=== PATIENT | female | born 1955 | race Caucasian/White ===

== ENCOUNTER 2021-03-01 14:45 | Outpatient (CLI) | payer MEDICARE, OTHER, SELFPAY ==
--- NOTE | ~2021-03-01 | MM_ITS ---
EXAMINATION: MM screening venkat BI w hilario HISTORY: Screening mammogram, family history of breast cancer in her mother. TECHNIQUE: Craniocaudal and mediolateral oblique 3-D tomosynthesis images were obtained and synthetic 2-D images were generated. CAD analysis was submitted and interpreted. COMPARISON: 05/21/2017, 12/22/2015, 07/27/2014 BREAST PARENCHYMAL COMPOSITION: There are scattered areas of fibroglandular density. FINDINGS: There is no evidence of suspicious mass, calcification, or architectural distortion to sugg est malignancy in either breast. There has been no suspicious interval change. IMPRESSION: 1. No mammographic evidence of malignancy. 2. Recommend routine screening mammography in one year. BI-RADS Category 1: Negative Reviewed, dictated and finalized at location A.
== END 2021-03-01 14:46 | disposition home or self-care (01) ==
LOC: CHSIMG 14:51
PROVIDERS: PCP Internal Medicine; Visit Provider Obstetrics & Gynecology
DX: Z12.31 Encounter for screening mammogram for malignant neoplasm of breast (principal)
CPT/HCPCS: 77063; 77067

== ENCOUNTER → 2021-05-21 10:37 | Outpatient (CLI) | payer MEDICARE, OTHER, SELFPAY ==
--- NOTE | ~2021-05-21 | MR_ITS ---
EXAMINATION: MR hip LT wo con DATE: 05/21/2021 12:19 INDICATION: Chronic left-sided hip pain and clicking. TECHNIQUE: Magnetic resonance imaging (MRI) of the left hip was performed without intravenous contra st. Sequences included full-field axial PD-weighted FS FSE and T1-weighted FSE, coronal of the pelvis with PD-weighted FS FSE, small field of view of the left hip with axial PD-weighted FS FSE, sagitta l PD-weighted FS FSE and coronal PD weighted FS FSE. Additional radial T1-weighted FGR oriented ortho gonal to the acetabular rim were obtained for evaluation of the labrum. COMPARISON: None FINDINGS: Bones/labrum/cartilage: Mild lumbar levoscoliosis with moderate to severe spondylosis. Alignment is otherwise normal. No frac ture, avascular necrosis or pathologic marrow replacing process. Interval progression of now severe l eft hip osteoarthritis with extensive full-thickness cartilage loss and underlying subarticular cysti c change at the apex and anterosuperior aspect of the femoral head and at the anteromedial to the sup erolateral acetabulum. There is diffuse degenerative tearing of the acetabular labrum. Mild right hip osteoarthritis. Fluid: Small left hip joint effusion. Soft tissues: Musculature in the pelvis and visualized proximal thighs appears normal and symmetric. The iliopsoas tendons are normal. Tendinopathy without discrete tears, moderate severity at the right gluteus mediu s and mild at the left gluteus medius and bilateral gluteus minimus tendons as well as at the bilater al proximal hamstring tendons. Prominent diverticulosis along the visualized sigmoid and descending c olon. Limited evaluation of visceral organs of the pelvis is otherwise unremarkable. No pathological ly enlarged pelvic/inguinal lymphadenopathy. IMPRESSION: 1. Interval progression of now severe left hip osteoarthritis. 2. Mild lumbar levoscoliosis with moderate to severe spondylosis. 3. Prominent diverticulosis. Reviewed, dictated and finalized at location A. SERVICE TECHNICIAN
== END ==
PROVIDERS: PCP Internal Medicine; Visit Provider Internal Medicine
DX: M25.552 Pain in left hip (principal); K57.30 Diverticulosis of large intestine without perforation or abscess without bleeding; M47.896 Other spondylosis, lumbar region
CPT/HCPCS: 73721

== ENCOUNTER → 2021-06-15 10:49 | Outpatient (CLI) | payer MEDICARE, OTHER, SELFPAY ==
--- NOTE | ~2021-06-15 | MR_ITS ---
EXAMINATION: MR lumbar spine wo con DATE: 06/15/2021 11:35 INDICATION: Chronic low back pain. TECHNIQUE: Magnetic resonance imaging (MRI) of the lumbar spine was performed without intravenous con trast. Sequences included sagittal T2-weighted FSE, sagittal T2-weighted FS FSE, sagittal T1-weighted FSE, and axial T2-weighted FSE. COMPARISON: None FINDINGS: 20 degrees lumbar levoscoliosis measured between T12 and L4. 1-2 mm anterolisthesis L2 on L3. 3 mm re trolisthesis L5 on S1. Vertebral body heights are normal. Moderate to severe left-sided predominant d isc height loss at L5-S1 with left sided fibrofatty degenerative endplate changes. Moderate left-side d predominant disc height loss at L4-L5 and moderate right-sided disc height loss at L2-L3. Mild righ t-sided predominant disc height loss at L1-L2 and L3-L4. Moderate disc height loss at T10-T11 and mil d disc height loss at T11-T12. Additional fibrofatty endplate changes along the anterior inferior end plates of T10 and T11. Couple T1 hyperintense hemangiomas at S2. Marrow signal is otherwise unremarka ble. The conus medullaris terminates at L1. There is normal signal in the caudal spinal cord. 2.5 par apelvic cyst at the right renal sinus. Paravertebral soft tissues are unremarkable. The following dis c levels are specifically discussed: T12-L1: Disc is mildly bulging. There is mild bilateral facet joint osteoarthritis. There is no neura l foraminal stenosis. There is no central canal stenosis. L1-L2: Disc is bulging. There is moderate to moderate left and moderate right facet joint osteoarthri tis. There is mild bilateral neural foraminal stenosis. There is mild central canal stenosis. L2-L3: Disc is bulging. There is severe bilateral facet joint osteoarthritis. There is mild left and minimal right neural foraminal stenosis. There is mild central canal stenosis. L3-L4: Disc is bulging with annular fissure. There is moderate bilateral facet joint osteoarthritis. There is mild bilateral, left greater than right neural foraminal stenosis. There is mild central can al stenosis. L4-L5: Disc is bulging with annular fissure. There is mild right and moderate left facet joint osteoa rthritis. There is moderate left and mild to moderate right neural foraminal stenosis. There is mild central canal stenosis. L5-S1: Disc is bulging. There is mild bilateral facet joint osteoarthritis. There is moderate left an d minimal right neural foraminal stenosis. There is no central canal stenosis. IMPRESSION: 1. 20 degrees lumbar levoscoliosis with moderate to severe spondylosis. Reviewed, dictated and finalized at location B. CAL OFFICE ASSISTANT INSTRUCTOR
== END ==
PROVIDERS: PCP Internal Medicine; Visit Provider Internal Medicine
DX: M47.815 Spondylosis without myelopathy or radiculopathy, thoracolumbar region (principal); M48.05 Spinal stenosis, thoracolumbar region; M47.817 Spondylosis without myelopathy or radiculopathy, lumbosacral region; M48.07 Spinal stenosis, lumbosacral region; M41.9 Scoliosis, unspecified
CPT/HCPCS: 72148

== ENCOUNTER 2022-05-20 11:36 | Outpatient (CLI) | payer MEDICARE, OTHER, SELFPAY ==
--- NOTE | ~2022-05-20 | MM_ITS ---
EXAMINATION: MM screening venkat BI w hilario HISTORY: Screening TECHNIQUE: Craniocaudal and mediolateral oblique 3-D tomosynthesis images were obtained and synthetic 2-D images were generated. CAD analysis was submitted and interpreted. COMPARISON: Comparison to multiple prior studies sequentially, with oldest reviewed study dated 05/08. BREAST PARENCHYMAL COMPOSITION: The breasts are heterogeneously dense, which may obscure small masses . FINDINGS: There is no evidence of suspicious mass, calcification, or architectural distortion to sugg est malignancy in either breast. There has been no suspicious interval change. IMPRESSION: 1. No mammographic evidence of malignancy. 2. Recommend routine screening mammography in one year. BI-RADS Category 1: Negative Reviewed, dictated and finalized at location A. STANT TEACHING PROFESSOR
== END 2022-05-20 11:37 | disposition home or self-care (01) ==
LOC: CHSIMG 11:37
PROVIDERS: PCP Internal Medicine; Visit Provider Internal Medicine
DX: Z12.31 Encounter for screening mammogram for malignant neoplasm of breast (principal)
CPT/HCPCS: 77063; 77067

== ENCOUNTER 2022-11-28 10:57 | Outpatient (CLI) | payer MEDICARE, OTHER, SELFPAY ==
--- NOTE | 2022-11-28 11:19 | ECG_ITS ---
Measurements Intervals [place] Rate: 53 P: 55 LA: 194 QRS: 40 QRSD: 104 T: 11 QT: 417 QTc: 395 Interpretive Statements SINUS BRADYCARDIA MINIMAL Q WAVES- INFERIOR LEADS BORDERLINE ECG NO PREVIOUS ECG AVAILABLE FOR COMPARISON Electronically Signed On 11-28-2022 11:28:41 CDT by Nehemiah Sanchez D.O.
[2022-11-28 11:33] LABS: Hematocrit 39.4 % (37.0-47.0); Hemoglobin 13.1 g/dL (12.0-15.0)
[2022-11-28 11:42] LABS: Albumin Level 4.4 g/dL (3.5-5.1); Estimated Glomerular Filt Rate > 60; Glucose 92 mg/dL (65-110)
== END 2022-11-28 10:58 | disposition home or self-care (01) ==
PROVIDERS: PCP Internal Medicine; Visit Provider Orthopaedic Surgery
DX: M16.12 Unilateral primary osteoarthritis, left hip (principal); E78.5 Hyperlipidemia, unspecified; I10 Essential (primary) hypertension
CPT/HCPCS: 36415; 82040; 82565; 82947; 85014; 85018; 93005

== ENCOUNTER 2023-01-20 11:56 | Outpatient (CLI) | payer MEDICARE, OTHER, SELFPAY ==
[2023-01-20 13:08] LABS: Basophils Absolute Auto 0.1 K/mm3 (0.0-0.1); Basophils Percent Auto 0.7 % (0.2-1.2); Eosinophils Absolute Auto 0.1 K/mm3 (0-0.3); Eosinophils Percent Auto 1.5 % (0-4.4); Hematocrit 39.2 % (37.0-47.0); Hemoglobin 12.8 g/dL (12.0-15.0); Immature Granulocyte Absolute 0.02 K/mm3 (0.00-0.031); Immature Granulocyte Percent A 0.3 % (0-0.5); Lymphocytes Absolute Auto 1.46 K/mm3 (0.9-3.2); Lymphocytes Percent Auto 21.3 % (18.3-44.2); Mean Corpuscular HGB Conc 32.7 g/dl (32-36); Mean Platelet Volume 9.1 fl (7.4-10.4); Monocytes Absolute Auto 0.6 K/mm3 (0.1-0.6); Neutrophils Absolute Auto 4.7 K/mm3 (1.3-6.7); Neutrophils Percent Auto 68.2 % (45.5-73.1); Platelet Count Result 206 k/mm3 (150-375); Red Blood Count 4.26 M/mm3 (4.2-5.4); Red Cell Distribution Width 12.6 % (11.5-14.5); White Blood Count 6.9 K/mm3 (4.5-10.0)
[2023-01-20 13:14] LABS: Albumin Level 4.2 g/dL (3.5-5.1)
[2023-01-20 13:17] LABS: Urine Cotinine NEGATIVE
[2023-01-20 13:18] LABS: Anion Gap 3 mmol/L (8-16); Blood Urea Nitrogen 12 mg/dL (7-17); Calcium 9.2 mg/dL (8.4-10.2); Carbon Dioxide 36 mmol/L (22-30); Chloride 99 mmol/L (98-107); Estimated Glomerular Filt Rate > 60; Glucose 103 mg/dL (65-110); Potassium 3.7 mmol/L (3.4-5.0); Sodium 138 mmol/L (137-145)
[2023-01-20 13:35] LABS: Hemoglobin A1C 5.2 % (<5.7)
== END 2023-01-20 11:57 | disposition home or self-care (01) ==
LOC: ANHSURGERY 12:04
PROVIDERS: Anesthesiology; PCP Internal Medicine; Visit Provider Orthopaedic Surgery
DX: Z01.812 Encounter for preprocedural laboratory examination (principal); M16.12 Unilateral primary osteoarthritis, left hip; Z79.899 Other long term (current) drug therapy
CPT/HCPCS: 80048; 80307; 82040; 83036; 85025; 87081

== ENCOUNTER 2023-02-17 01:51 | Day surgery (SDC) | payer MEDICARE, OTHER, SELFPAY ==
--- NOTE | 2023-01-20 11:48 | PC.NURSE ---
PRE-OP INSTRUCTIONS, PLEASE READ CAREFULLY Report to the Outpatient Waiting Room, entrance under the green pavilion located off [facility], at time _1000_ on date _02/17/23_. Planned Procedure Time: _1200_. PACK A SMALL OVERNIGHT BAG AND LEAVE IN THE CARE ALONG WITH YOUR WALKER Time changes happen often and if your time is changed the preop area will call you the afternoon before. - You and your visitor will be asked to self-screen and do not enter if you have any COVID symptoms. - A mask is optional within the hospital at this time. -VISITING HOURS 8AM-8PM Patients may have clear liquids (water, carbonated beverages, clear teas, apple juice) until 3 hours prior to surgery (0900 AM) with a maximum of 20 ounces. - No food from midnight until time of surgery Take the following medications with a SIP of water the morning of surgery: _NONE_ DO NOT STOP ANY OF YOUR OTHER PRESCRIPTION MEDICATIONS PRIOR TO SURGERY ?EXCEPT THE FOLLOWING Medications to discontinue per ANESTHESIA - _FISH OIL 3 DAYS PRIOR TO SURGERY, Date to take last dose 02/13/23_ Please no make-up, nail serbian, hairspray, perfume, deodorant, or body powder the day of surgery. No jewelry (including any body piercings) or valuables the day of surgery, leave them at home. Please take a shower or bath the night before, or the morning of, surgery with an antibacterial soap. Wear comfortable, loose fitting clothing. - Jewelry must be removed prior to entering the operating room. Rings and piercings that are not removed may be cut off. - The hospital will not accept responsibility for valuables. - Please leave all valuables, including medications, at home the day of surgery. If you are going home after surgery, a licensed chair car driver must drive you home. - NO public transportation without another adult if you receive anesthesia. - We recommend that an adult stay with you for 24 hours following discharge. - We also recommend that you do not drive, make important decision, drink alcoholic beverages, or take any drugs that were not prescribed by your health care provider for at least 24 hours after your discharge time. Follow any additional instructions given to you from your surgeon. If you or anyone in your household have experienced Covid symptoms in the past week, please notify your surgeon or the nurse liaison at the phone number below for possible testing. Instructions given to _PATIENT_and asked if any additional questions and then verbalized understanding. Patient advised to call surgeon office or pre surgery nurse liaison [phone] if any additional questions.
[2023-01-20 12:18] VITALS: BP 130/64; PULSE 72; RESP 18; TEMP 36.6; O2SAT 100; BMI 36.1
[2023-02-17] VITALS (11 sets, daily range): BP systolic 121–146; BP diastolic 56–79; PULSE 53–91; RESP 12–16; TEMP 36.1–36.4; O2SAT 99–100
--- NOTE | ~2023-02-17 | XR_ITS ---
EXAM: XR hip LT min 2V DATE: 02/17/2023 15:26 HISTORY: LT TOTAL HIP . COMPARISON: 11/22/2022, images only. FINDINGS/IMPRESSION: Expected postsurgical changes, status post left hip arthroplasty, with no radiog raphic evidence of procedure or hardware related complication. Reviewed, dictated and finalized at location K.
[2023-02-17] MEDS: LACTATED RINGERS 1,000 ML 30 ML IV CONT ×2 (10:32→15:00)
[2023-02-17] MEDS: ACETAMINOPHEN 500 MG TABLET 1000 MG PO ×3 (10:33→21:39)
[2023-02-17] MEDS: TRANEXAMIC ACID 1,000MG/ISO100 1,000 MG/100 ML BAG 200 MG IVPB (10:33)
--- NOTE | 2023-02-17 12:09 | WPDHPUPDATE1 ---
History and Physical Update Update Date/Time: 02/17/23 12:09 History and Physical has been reviewed, including an updated exam of the patient. Slight leg abrasion. No signs of infection. Risks, benefits, and alternatives have been discussed and questions answered. Patient agrees to proceed with procedure.
--- NOTE | 2023-02-17 12:35 | P.PNAN_ITS ---
Anes - Initial Pre Proc Eval Procedure: Operation Date: 02/17/23 12:00 Proposed Procedures p Left Total Hip Arthroplasty - Nikos Byrnes MD Date/Time: 02/17/23 12:35 Surgeon: Nikos Byrnes MD Pre Op Diagnosis: primary oa left hip Patient Data Age: 67 Gender: F Height: 1.63 m Weight: 93.9 kg Last Vital Signs Temp 97.9 F 01/20/23 12:18 Pulse 72 01/20/23 12:18 Resp 18 01/20/23 12:18 BP 130/64 01/20/23 12:18 Pulse Ox 100 01/20/23 12:18 O2 Del Method Room Air 01/20/23 12:18 Allergies Allergy/AdvReac Type Severity Reaction Status Date / Time codeine Allergy Unknown Nausea Verified 02/17/23 10:03 Home Medications Medication Instructions Recorded Confirmed Type irbesartan 150 1 tablet PO DAILY 11/22/22 02/17/23 History mg-hydrochlorothiazide 12.5 mg tablet omega-3 900 mg-dha 360 mg-epa 455 1 cap PO DAILY 11/22/22 02/17/23 History mg-fish oil 1,000 mg capsule Patient hx anesthesia problems: none Family hx anesthesia problems: none Results Review: All pre-operative results and documents have been reviewed as part of the pre- operative evaluation. [facility] Past Medical History Medical History History of bruising easily History of stress test Hyperlipidemia Hypertension Sleep apnea Surgical History Surgical History History of dental surgery History of hysterectomy (~1998) Family History Family History Other Family history of arthritis Hypertension Social History Social History Smoking status: Never smoker Additional smoking assessment comments: PT DENIES ALL FORMS OF TOBACCO USE Alcohol intake: never Substance use: never Substance use type: does not use Lack of Transportation: No Lack of Food: Never True Current Housing: I Have Housing Concerned About Future Housing: No Difficulty Paying Gas/Electric Bills: No Difficulty Paying for Meds: No Currently Unemployed: No Education: High School Diploma/GED Difficulty w/ Childcare or Family Care: No Living arrangements: alone Spiritual care concerns: No Anes - Eval Final PreProcedure Day of Procedure 02/17/23 12:35 Patient weight: obese Heart: regular rate and rhythm Lungs: clear to auscultation Airway: Mallampati scale class III Neurological: alert and oriented Last oral intake: >/= 8 hours ASA classification: III Emergent: no Anesthetic plan: proceed Anesthesia type and monitoring: general ETT and standard monitoring Results Review: All pre-operative results and documents have been reviewed as part of the pre- operative evaluation. Informed Consent: The patient's anesthetic plan and its attendant risks and benefits were discussed with the patient/family/POA. Questions were solicited and answers provided to the satisfaction of the patient/family/POA.
[2023-02-17] MEDS: ceFAZolin 2 GM/D5W 50 ML 2 GM/50 ML BAG IVPB ×2 (12:54→21:38)
[2023-02-17] MEDS: fentaNYL CITRATE INJ (*CRX) 100 MCG/2 ML VIAL 25 MCG IV PUSH ×4 (15:19→16:05)
--- NOTE | 2023-02-17 15:24 | W.PM.PROC2 ---
Procedure Note - Detailed Date of Procedure 02/17/23 Pre-op Diagnosis primary oa left hip Post-op Diagnosis Same Procedure Performed Left Total Hip Arthroplasty Surgeon Nikos Byrnes MD Training Executive Valeri Clifton PA-C. Anesthesia General Findings Good bone quality. Sizing matched preoperative templating. Description of Procedure The patient was given preoperative antibiotics. A general anesthetic was administered. The patient was carefully placed in the lateral decubitus position on the PEG board. The shoulders and hips were carefully positioned for component and leg length positioning reference. The hip was prepped and draped in the usual sterile fashion. A longitudinal incision was created over the posterior aspect of the greater trochanter. Careful dissection was brought down through the deep fascia with electrocautery. A minimally invasive optimized posterior approach to the hip was performed. The short external rotators and capsule were taken down in an L-shaped capsulotomy. The tissue was tagged for later repair using number 2 high strength suture. The femoral neck was measured and taken in situ. The femoral head was removed. The acetabulum was carefully exposed. The inferior capsule was released. The labrum was resected. The acetabulum was sequentially reamed to the intended cup size. The cup was impacted into position with excellent press-fit. Typical anatomic landmarks, including the bony contact points as well as the inferior transverse acetabular ligament were used to confirm cup positioning with preoperative templating. Attention was turned to the femur, which was carefully exposed. The hip was reamed and then broached sequentially. Excellent press-fit was obtained with the broach. The hip was trialed. Measurements were utilized, including the lesser trochanter as well as the center of the femoral head and the tip of the trochanter, and excellent assessment of the offset and leg lengths were confirmed. The real component was impacted into position. Trialing confirmed appropriate leg length and offset with soft tissue balancing as well apparent feel of the leg, both at the knee and the heel. Soft tissues were assessed using the the iliotibial band. Reduction of the posterior capsule and external rotators were also used as a secondary assessment. The hip was copiously irrigated with pulsatile lavage antibiotic solution periodically throughout the procedure. The real components were then assembled and reduced. The hip was stable throughout typical maneuvers, including extension, external rotation to 70 degrees, the position of sleep as well as flexion to 90 degrees with internal rotation past 45 degrees. The shake test confirmed stability without impingement. Osteophytes were removed as necessary. The short external rotators and capsule were repaired back to the posterior trochanter through drill holes. The deep fascia was repaired with running number 2 Quill suture, followed by 0 Stratafix suture and 2-0 Stratafix suture in the dermis. Steri-Strips were placed on the skin, followed by a sterile silver occlusive dressing. There were no complications. Meticulous hemostasis was maintained with the AquaMantys device. The patient was brought to the recovery room in stable condition. There were no complications. Physician roofer assistant, Valeri Clifton PA-C, required for surgery; including patient positioning, draping, tissue retraction, maintaining instrument position, hip dislocation/ relocation, wound closure, and dressing placement. Implants The Accolade II hip stem, 127 degree size 4 , was utilized with excellent press-fit. The 50 mm Trident II acetabular component was impacted with excellent press-fit stability. The +2.5, 36 mm Biolox ceramic femoral head was utilized. Estimated Blood Loss 200 Drains No Packing No Pathology None sent Complications No immediate complications Condition Stable Disposition PACU A
--- NOTE | 2023-02-17 16:30 | ADMGEN ---
This patient, Wilda Vera, was admitted to [facility] Surg Room 304-01. Patient/family oriented to hospital policies and general routines including ID bracelet, bed and alarms, visiting hours, pain management, procedures, bathroom and other care routines, personal items, smoking policy, room service/diet, and visiting hours. Information on how to activate the Rapid Response Team has been discussed. Patient/Family are encouraged to report perceived risks to care and to ask questions if they do not understand what they are told or what they should do.
[2023-02-17] MEDS: SODIUM CHLORIDE 0.9% IV 1,000 ML 125 ML IV CONT (17:20)
[2023-02-17] MEDS: ASPIRIN 81 MG ENTERIC TABLET PO (17:20)
[2023-02-17] MEDS: SENNA/DOCUSATE SODIUM TABLET 2 TAB PO (17:21)
[2023-02-17] MEDS: oxyCODONE HCL (*CRX) 5 MG TAB IR PO (19:06)
[2023-02-17] MEDS: FAMOTIDINE 20 MG TABLET PO (21:38)
[2023-02-18] MEDS: oxyCODONE HCL (*CRX) 5 MG TAB IR PO ×2 (01:24→08:03)
[2023-02-18 01:42] VITALS: BP 133/64; PULSE 78; RESP 18; TEMP 36.4; O2SAT 99
[2023-02-18] MEDS: ceFAZolin 2 GM/D5W 50 ML 2 GM/50 ML BAG IVPB (04:19)
[2023-02-18] MEDS: ACETAMINOPHEN 500 MG TABLET 1000 MG PO ×2 (04:19→10:34)
[2023-02-18 05:13] VITALS: BP 134/70; PULSE 69; RESP 16; TEMP 36.6; O2SAT 99
[2023-02-18 06:13] LABS: Basophils Percent Auto 0.4 % (0.2-1.2); Hematocrit 35.3 % (37.0-47.0); Hemoglobin 11.4 g/dL (12.0-15.0); Immature Granulocyte Absolute 0.05 K/mm3 (0.00-0.031); Immature Granulocyte Percent A 0.4 % (0-0.5); Lymphocytes Absolute Auto 0.99 K/mm3 (0.9-3.2); Lymphocytes Percent Auto 8.9 % (18.3-44.2); Mean Corpuscular HGB Conc 32.3 g/dl (32-36); Mean Corpuscular Hemoglobin 30.1 pg (26-34); Mean Corpuscular Volume 93.1 fl (80-100); Mean Platelet Volume 9.5 fl (7.4-10.4); Monocytes Absolute Auto 0.9 K/mm3 (0.1-0.6); Monocytes Percent Auto 8.4 % (2.6-8.5); Neutrophils Absolute Auto 9.1 K/mm3 (1.3-6.7); Neutrophils Percent Auto 81.9 % (45.5-73.1); Platelet Count Result 190 k/mm3 (150-375); Red Blood Count 3.79 M/mm3 (4.2-5.4); Red Cell Distribution Width 12.5 % (11.5-14.5); White Blood Count 11.1 K/mm3 (4.5-10.0)
[2023-02-18 06:26] LABS: Anion Gap 1 mmol/L (8-16); Blood Urea Nitrogen 9 mg/dL (7-17); Calcium 8.6 mg/dL (8.4-10.2); Carbon Dioxide 31 mmol/L (22-30); Chloride 100 mmol/L (98-107); Estimated CRCL calculation 86 ml/min; Estimated Glomerular Filt Rate > 60; Glucose 115 mg/dL (65-110); Sodium 132 mmol/L (137-145)
[2023-02-18] MEDS: ASPIRIN 81 MG ENTERIC TABLET PO (08:03)
[2023-02-18] MEDS: SENNA/DOCUSATE SODIUM TABLET 2 TAB PO (08:03)
[2023-02-18] MEDS: IRBESARTAN 150 MG TABLET PO (08:03)
[2023-02-18] MEDS: FAMOTIDINE 20 MG TABLET PO (08:03)
[2023-02-18] MEDS: hydroCHLOROthiazide 12.5 MG CAPSULE PO (08:03)
[2023-02-18] MEDS: CELECOXIB 200 MG CAPSULE PO (08:03)
[2023-02-18] MEDS: polyethylene glycoL 3350 17 GM POWD.PACK PO (08:04)
--- NOTE | 2023-02-18 08:28 | PM.DS ---
DS: Admitting Diagnosis Discharge Date 02/18/23 Admitting Diagnosis Left hip osteoarthritis DS: Discharge Diagnosis Discharge Diagnosis (1) Status post total hip replacement, left: Code(s): Z96.642 - Presence of left artificial hip joint Status: Acute Assessment and Plan: Postop day 1: Total hip arthroplasty. Patient tolerated procedure well. No complications. Pain manageable with pain medication. No numbness or tingling. We had a lengthy discussion regarding postoperative wound care, limitations, expectations, and exercises. Patient shows good understanding. Patient has had initial physical therapy and is tolerating it well. DVT prophylaxis: 81 mg baby aspirin b.i.d. for 14 days. Short frequent walks. Compression socks. Pain medication: Percocet. Celebrex. Patient has followup appointment with Dr. Byrnes in 3 weeks DS: Summary Hospital Course Reason for hospitalization: Total hip arthroplasty Hospital Course: Patient tolerated procedure well. Has had initial PT/OT. Status at Discharge Functional status at discharge: uses cane/walker Overall status at discharge: patient is progressing back to baseline Time Spent with Patient Time attestation: Total time spent providing and/or coordinating discharge services: Exam Narrative: Overweight 67 y/o female. Resting comfortably in bed. Wearing compression socks bilaterally. Dressing dry and intact with no drainage. Mild swelling. No ecchymosis. No erythema. No hematoma. Range of motion limited due to pain. Calf nontender. Thigh nontender. Neurologic status intact. No varicosities. Distal pulses palpable. DS: Data Data Completed and Pending Labs on day of discharge: Labs from last 24 hours 02/18/23 02/17/23 05:25 12:49 WBC 11.1 H RBC 3.79 L Hgb 11.4 L Hct 35.3 L MCV 93.1 MCH 30.1 MCHC 32.3 RDW 12.5 Plt Count 190 MPV 9.5 Immature Gran % (Auto) 0.4 Neut % (Auto) 81.9 H Lymph % (Auto) 8.9 L [place] % (Auto) 8.4 Eos % (Auto) 0.0 Baso % (Auto) 0.4 Lymph # (Auto) 0.99 [place] # (Auto) 0.9 H Eos # (Auto) 0.0 Baso # (Auto) 0.0 Abs Immat Gran (auto) 0.05 H Absolute Neuts (auto) 9.1 H Absolute Nucleated RBC 0.0 Nucleated RBC % 0.0 Sodium 132 L Potassium 4.0 Chloride 100 Carbon Dioxide 31 H Anion Gap 1 L BUN 9 Creatinine 0.60 L Estim Creat Clear Calc 86 Estimated GFR > 60 Glucose 115 H Calcium 8.6 Blood Type A Positive Antibody Screen Negative Discharge Plan Discharge Patient Disposition: Home, Self-Care Discharge Instructions: See green instructions sheets Stand Alone Forms: General Discharge Instructions Follow-up/Referrals: Valeri Clifton PA [Physician Nuclear Monitoring Technician] - Discharge Medications: New aspirin 81 mg tablet,delayed release (DR/EC) 81 mg PO BID 14 Days Qty: 28 0RF celecoxib [Celebrex] 200 mg capsule 200 mg PO DAILY Qty: 30 0RF oxycodone-acetaminophen 5-325 mg tablet 1 - 2 tablet PO Q4-6H MDD 6 PRN (Reason: pain) Qty: 30 0RF Continued irbesartan-hydrochlorothiazide 150-12.5 mg tablet 1 tablet PO DAILY omega 9-qsi-bqo-fish oil 900 mg-360 mg- 455 mg-1,000 mg capsule 1 cap PO DAILY
== END 2023-02-18 13:20 | disposition home or self-care (01) ==
LOC: ANHSURGERY 12:54 → ANH3MEDSUR 16:27
PROVIDERS: Physician Assistant Surgical; PCP Internal Medicine; Visit Provider Orthopaedic Surgery
PROC: (CPT 27130; principal; 2023-02-17 12:00)
DX: M16.12 Unilateral primary osteoarthritis, left hip (principal); I10 Essential (primary) hypertension; E78.5 Hyperlipidemia, unspecified; G47.30 Sleep apnea, unspecified; E66.9 Obesity, unspecified; Z68.35 Body mass index [BMI] 35.0-35.9, adult
CPT/HCPCS: 27130; 36415; 73502; 80048; 85025; 86850; 86900; 86901; 97110; 97116; 97161; 97165; 97530; 97535; A9270; C1776; J0171; J0690; J1100; J1170; J1885; J2250; J2270; J2405; J2704; J2710; J2795; J3010; J7030; J7120

== ENCOUNTER 2023-03-04 11:00 | Outpatient (RCR) | payer MEDICARE, OTHER, SELFPAY ==
--- NOTE | 2023-03-04 15:18 | OPREHPOC ---
Outpatient Therapy Plan of Care This is a Multidisciplinary Plan of Care that may contain components documented by all disciplines (PT, OT, and ST.) PT Problem 1 PT Problem #1 Knowledge Deficit PT Goal 1 Goal 1. Patient to demonstrate independence with HEP to improve progress made in PT. Target Visit 6 PT Problem 2 PT Problem #2 Impaired Strength PT Goal 1 Goal 1. Patient to improve L hip flexion and extension strength to at 4-/5 or better to improve ability to ascend stairs. 2. Patient to improve L hip abduction strength to 4/5 or better to improve gait mechanics. 3. Patient to improve L knee strength to 5/5 overall to improve ability to squat for picking item up from floor. Target Visit 12 PT Problem 3 PT Problem #3 Impaired Range of Motion PT Goal 1 Goal 1. Patient to improve L hip ER AROM to 30 degrees or more to improve ability to don socks/shoes in sitting position. Target Visit 12 PT Problem 4 PT Problem #4 Impaired Gait PT Goal 1 Goal 1. Patient to ambulate with no limp and least restrictive assistive device/no assistive device to improve ability to ambulate in grocery store. 2. Patient to ambulate without L LE circumduction to decrease fall risk while walking outside on uneven surface. Target Visit 12 PT Problem 5 PT Problem #5 Impaired Functional Mobil PT Goal 1 Goal 1. Patient to improve LEFS score to 30% or less functional decline in order to facilitate return to normal daily activites. 2. Patient to ascend/descend 1 flight of stairs to allow for ability to nagivate stairs in community . 3. Patient to report no difficulty getting into and out of car to allow for increased tolerance to arrive/depart at doctor's appointments, shopping, and other errands. Target Visit 12
--- NOTE | 2023-03-04 15:18 | PTOPEVAL1 ---
Assessment and note entered by JT File, PT Evaluation Information Assessment Status Evaluation Diagnosis s/p L MANN Onset 02/17/23 Subjective Information Patient reports she had a posterior left hip replacement two weeks ago yesterday. She notes her pain has been tolerable, but does increase with increased activity. She notes difficulty with getting in/out of bed, and is currently using a cane to lift the L LE to perform this action. She has primarily been using a SPC for ambulation, but for longer distances uses a FWW. Prior to surgery she always used an assistive device (cane/walker) for mobility. She notes that her back is curved from walking off-balance with her hip. Patient notes difficulty with walking longer distances, climbing a flight of stairs, getting in/out of car , and sleeping. She notes she is currently treating pain with over the counter NSAIDS and ice . Reported Pain Level Pain Score 3: Self Report Assessment PT Clinical Summary Mrs. Vera is a 67 y/o female who presents to skilled PT s/p L posterior MNAN. She presents with deficits in ambulation, LE strength, hip ROM, and balance. She currently has 67% functional decline as assessed by the LEFS. She reports difficulty with movements such as getting into/out of car, getting into/out of bed, ambulating longer distances. She would benefit from continued skilled PT to address these deficits and improve functional mobility for daily activities. Plan of Care Interventions Electrical Stimulation,Gait Training,Hot Pack/Cold Pack,Manual Therapy,Neuro Re-education,Patient/ Caregiver Educati,Therapeutic Activities, Therapeutic Exercise PT Services Indicated Yes Treatment Frequency and 3x/week for 12 visits Duration These treatments will address the objective and functional deficits as defined above. The patient will be advanced safely and appropriately in order for the patient to progress towards his/her prior level of function. Additional exercises will be introduced and as well as a comprehensive home exercise program upon discharge, if needed, ?to ensure carryover of functional gains achieved in the clinic. This treatment plan has been reviewed and agreement upon by the patient.
--- NOTE | 2023-03-28 14:40 | OPREHPOC ---
Outpatient Therapy Plan of Care This is a Multidisciplinary Plan of Care that may contain components documented by all disciplines (PT, OT, and ST.) PT Problem 1 PT Problem #1 Knowledge Deficit PT Goal 1 Goal 1. Patient to demonstrate independence with HEP to improve progress made in PT. Target Visit 6 Progress Met PT Problem 2 PT Problem #2 Impaired Strength PT Goal 1 Goal 1. Patient to improve L hip flexion and extension strength to at 4-/5 or better to improve ability to ascend stairs. 2. Patient to improve L hip abduction strength to 4/5 or better to improve gait mechanics. 3. Patient to improve L knee strength to 5/5 overall to improve ability to squat for picking item up from floor. Target Visit 12 Progress Partially Met Comment goals 1 and 2 partially met, goal 3 met PT Problem 3 PT Problem #3 Impaired Range of Motion PT Goal 1 Goal 1. Patient to improve L hip ER AROM to 30 degrees or more to improve ability to don socks/shoes in sitting position. Target Visit 12 Progress Partially Met Comment ROM increased, goal not met PT Problem 4 PT Problem #4 Impaired Gait PT Goal 1 Goal 1. Patient to ambulate with no limp and least restrictive assistive device/no assistive device to improve ability to ambulate in grocery store. 2. Patient to ambulate without L LE circumduction to decrease fall risk while walking outside on uneven surface. Target Visit 12 Progress Partially Met Comment goal 2 met PT Problem 5 PT Problem #5 Impaired Functional Mobil PT Goal 1 Goal 1. Patient to improve LEFS score to 30% or less functional decline in order to facilitate return to normal daily activites. 2. Patient to ascend/descend 1 flight of stairs to allow for ability to nagivate stairs in community . 3. Patient to report no difficulty getting into and out of car to allow for increased tolerance to arrive/depar
--- NOTE | 2023-03-28 14:41 | PTOPDC ---
Assessment and note entered by JT File, PT Evaluation Information Assessment Status Re-evaluation Diagnosis s/p L MANN Onset 02/17/23 Subjective Information Patient reports experiencing less pain present in the L hip than prior to starting PT. She does state that her knees have been starting to bother her more again as she has been doing more activities and exercises. Patient notes improved mobility since starting PT, with walking, stair climbing, and transfers in/out of car. She notes she only uses the cane when she is having more pain. Patient has been performing HEP consistently at home. Reported Pain Level Pain Score 1: Self Report Assessment PT Clinical Summary Mrs. Vera has attended 12 visits of skilled PT s/p L posterior MANN. She demonstrates improved LE strength and ROM this date, however continues to show some limitations when compared L to R side. Patient improved distance ambulated during 6 minute walk test and improved Tinetti balance score, showing improved endurance and balance. She currently has 36% functional decline as assessed by the LEFS, decreasing from 67% at the initial assessment. She reports continued difficulty with movements/activities such as ambulating longer distances and carrying heavy objects. Appropriate to d/c patient with independent HEP to continue strengthening activities at home to continue strenghtening and endurance exercises. Plan of Care PT Services Indicated No
== END 2023-03-28 16:44 | disposition home or self-care (01) ==
LOC: CHSPT 11:00
PROVIDERS: Visit Provider Orthopaedic Surgery
DX: Z47.1 Aftercare following joint replacement surgery (principal); Z96.642 Presence of left artificial hip joint
CPT/HCPCS: 97110; 97112; 97161; 97530

== ENCOUNTER 2023-05-22 12:10 | Outpatient (CLI) | payer MEDICARE, OTHER, SELFPAY ==
--- NOTE | ~2023-05-22 | MM_ITS ---
EXAMINATION: MM screening venkat BI w hilario HISTORY: Screening mammogram, family history of breast cancer in her mother. TECHNIQUE: Craniocaudal and mediolateral oblique 3-D tomosynthesis images were obtained and synthetic 2-D images were generated. CAD analysis was submitted and interpreted. COMPARISON: Prior mammograms dating back to 07/27/2014 BREAST PARENCHYMAL COMPOSITION: There are scattered areas of fibroglandular density. FINDINGS: No suspicious mass, calcification, or architectural distortion are identified in either larissa ast to suggest malignancy. There has been no suspicious interval change. IMPRESSION: 1. No mammographic evidence of malignancy. 2. Recommend routine screening mammography in one year. BI-RADS Category 1: Negative Reviewed, dictated and finalized at location A. LE STRINGER
== END 2023-05-22 12:11 | disposition home or self-care (01) ==
LOC: CHSIMG 12:13
PROVIDERS: PCP Internal Medicine; Visit Provider Internal Medicine
DX: Z12.31 Encounter for screening mammogram for malignant neoplasm of breast (principal)
CPT/HCPCS: 77063; 77067

== ENCOUNTER 2023-07-04 14:10 | Outpatient (CLI) | payer MEDICARE, OTHER, SELFPAY ==
--- NOTE | ~2023-07-04 | XR_ITS ---
XR hip LT 2V w AP pelvis 07/04/2023 14:40 Indication: Status post recent hip surgery Procedure: 3 views left hip Comparison: Comparison to multiple prior studies sequentially, with oldest reviewed study dated 03/2023. Findings: There is a left total hip arthroplasty in near-anatomic alignment. No fracture or traumatic malalignment. No evidence for periprosthetic loosening. Impression: 1: No acute bone or joint abnormality. Reviewed, dictated and finalized at location A. CH ADMINISTRATOR Impression: 1: No acute bone or joint abnormality.
== END 2023-07-04 14:11 | disposition home or self-care (01) ==
PROVIDERS: PCP Internal Medicine
DX: Z96.642 Presence of left artificial hip joint (principal)
CPT/HCPCS: 73502

== ENCOUNTER 2023-07-15 03:37 | Day surgery (SDC) | payer MEDICARE, OTHER, SELFPAY ==
[2023-07-03 10:23] VITALS: BMI 37.1
--- NOTE | 2023-07-11 10:09 | SUR.PREOP ---
Patient called regarding upcoming procedure. Reviewed preop instructions, new appointment times, and procedure prep.
--- NOTE | 2023-07-14 15:07 | PM.HPGS ---
History of Present Illness History of Present Illness Consent: Risks, benefits, and alternatives have been discussed and questions answered. Patient agrees to proceed with procedure. Chief complaint: neoplasm screening Narrative: Wilda Vera is a 68 year old female Referred for colon cancer screening. Her father had colon cancer Review of Systems Review of Systems: All systems reviewed & are unremarkable except as noted in HPI and below PMFSH Past Medical History Medical History History of bruising easily History of stress test Hyperlipidemia Hypertension Sleep apnea Surgical History Surgical History History of dental surgery History of hysterectomy (~1998) History of total left hip arthroplasty (~02/17/23) Family History Family History Other Family history of arthritis Hypertension Social History Social History Smoking status: Never smoker Alcohol intake: current Alcohol use details: Occasionally Substance use type: does not use Do You Feel Safe in your Home?: Yes Lack of Transportation: No Lack of Food: Never True Current Housing: I Have Housing Concerned About Future Housing: No Difficulty Paying Gas/Electric Bills: No Difficulty Paying for Meds: No Currently Unemployed: No Education: High School Diploma/GED Difficulty w/ Childcare or Family Care: No Living arrangements: alone Meds Home Medications and Allergies Home Medications Medication Instructions Recorded Confirmed Type irbesartan 150 1 tablet PO DAILY 11/22/22 07/15/23 History mg-hydrochlorothiazide 12.5 mg tablet omega-3 900 mg-dha 360 mg-epa 455 1 cap PO DAILY 11/22/22 07/15/23 History mg-fish oil 1,000 mg capsule celecoxib 200 mg capsule 200 mg PO DAILY 07/03/23 07/15/23 History simvastatin 5 mg tablet 5 mg PO DAILY 07/03/23 07/15/23 History Allergies Allergy/AdvReac Type Severity Reaction Status Date / Time codeine AdvReac Unknown Nausea Verified 07/15/23 09:50 Exam Const: General: alert Orientation/consciousness: patient oriented x3 Resp: Auscultation: clear to auscultation bilaterally Cardio: Rhythm: regular rhythm GI: GI Palp: Yes Soft to palpation and No Tenderness to palpation present (GI) Neuro: General: patient oriented x3 Assessment and Plan Assessment and plan (1) Colon cancer screening: Code(s): Z12.11 - Encounter for screening for malignant neoplasm of colon Status: Acute Assessment and Plan: Colonoscopy with possible biopsy or polypectomy or cautery or injection of substances.
[2023-07-15 09:27] VITALS: BP 171/98; PULSE 90; RESP 20; TEMP 36.1; O2SAT 96
[2023-07-15] MEDS: LACTATED RINGERS 1,000 ML 150 ML IV CONT (09:45)
[2023-07-15] MEDS: AMPICILLIN 2 GM/NS 100 ML 2 GM/100 ML BAG IVPB (09:49)
--- NOTE | 2023-07-15 09:57 | P.PNAN_ITS ---
Anes - Initial Pre Proc Eval Procedure: Operation Date: 07/15/23 10:30 Proposed Procedures p Screening Colonoscopy - Amilcar Heredia MD Date/Time: 07/15/23 09:57 Surgeon: Amilcar Heredia MD Pre Op Diagnosis: neoplasm screening Patient Data Age: 68 Gender: F Height: 1.68 m Weight: 103.8 kg Last Vital Signs Temp 96.9 F L 07/15/23 09:27 Pulse 90 07/15/23 09:27 Resp 20 07/15/23 09:27 BP 171/98 H 07/15/23 09:27 Pulse Ox 96 07/15/23 09:27 O2 Del Method Room Air 07/15/23 09:27 Allergies Allergy/AdvReac Type Severity Reaction Status Date / Time codeine AdvReac Unknown Nausea Verified 07/15/23 09:50 Home Medications Medication Instructions Recorded Confirmed Type irbesartan 150 1 tablet PO DAILY 11/22/22 07/15/23 History mg-hydrochlorothiazide 12.5 mg tablet omega-3 900 mg-dha 360 mg-epa 455 1 cap PO DAILY 11/22/22 07/15/23 History mg-fish oil 1,000 mg capsule celecoxib 200 mg capsule 200 mg PO DAILY 07/03/23 07/15/23 History simvastatin 5 mg tablet 5 mg PO DAILY 07/03/23 07/15/23 History Patient hx anesthesia problems: none Family hx anesthesia problems: none Results Review: All pre-operative results and documents have been reviewed as part of the pre- operative evaluation. [facility]LY [facility] Past Medical History Medical History History of bruising easily History of stress test Hyperlipidemia Hypertension Sleep apnea Surgical History Surgical History History of dental surgery History of hysterectomy (~1998) History of total left hip arthroplasty (~02/17/23) Family History Family History Other Family history of arthritis Hypertension Social History Social History (Updated 07/09/23 @ 11:24 by Lovely Crane MA) Smoking status: Never smoker Alcohol intake: current Alcohol use details: Occasionally Substance use type: does not use Do You Feel Safe in your Home?: Yes Lack of Transportation: No Lack of Food: Never True Current Housing: I Have Housing Concerned About Future Housing: No Difficulty Paying Gas/Electric Bills: No Difficulty Paying for Meds: No Currently Unemployed: No Education: High School Diploma/GED Difficulty w/ Childcare or Family Care: No Living arrangements: alone Anes - Eval Final PreProcedure Day of Procedure 07/15/23 09:57 Patient weight: obese Heart: regular rate and rhythm Lungs: clear to auscultation Airway: Mallampati scale class III Neurological: alert and oriented Last oral intake: >/= 8 hours ASA classification: III Emergent: no Anesthetic plan: proceed Anesthesia type and monitoring: general GIVS and standard monitoring Results Review: All pre-operative results and documents have been reviewed as part of the pre- operative evaluation. Informed Consent: The patient's anesthetic plan and its attendant risks and benefits were discussed with the patient/family/POA. Questions were solicited and answers provided to the satisfaction of the patient/family/POA.
[2023-07-15 10:37] VITALS: BP 147/77; PULSE 82; RESP 25; O2SAT 100
[2023-07-15 10:46] VITALS: BP 143/70; PULSE 79; RESP 22; O2SAT 97
[2023-07-15 11:01] VITALS: BP 138/62; PULSE 77; RESP 29; O2SAT 98
== END 2023-07-15 11:10 | disposition home or self-care (01) ==
PROVIDERS: PCP Internal Medicine; Visit Provider Internal Medicine Gastroenterology
PROC: 0DJD8ZZ Inspection of Lower Intestinal Tract, Via Natural or Artificial Opening Endoscopic (ICD-10-PCS; CPT 45378; principal; 2023-07-15 10:30)
DX: Z12.11 Encounter for screening for malignant neoplasm of colon (principal); K57.30 Diverticulosis of large intestine without perforation or abscess without bleeding; Z80.0 Family history of malignant neoplasm of digestive organs; I10 Essential (primary) hypertension; E78.5 Hyperlipidemia, unspecified; G47.30 Sleep apnea, unspecified; E66.9 Obesity, unspecified; Z68.36 Body mass index [BMI] 36.0-36.9, adult
CPT/HCPCS: G0105; J0290; J2704; J7120

== ENCOUNTER 2023-08-15 01:22 | Day surgery (SDC) | payer MEDICARE, OTHER, SELFPAY ==
[2023-08-05 09:36] VITALS: BMI 40.4
--- NOTE | 2023-08-05 09:42 | PC.NURSE ---
Report to the Outpatient Waiting Room, entrance under the green pavilion located off [facility], at time ___1 PM____ on date __08/15/23 . Planned Procedure Time: ___2 PM . Time changes happen often and if your time is changed the preop area will call you the afternoon before. - You and your visitor will be asked to self-screen and do not enter if you have any COVID symptoms. - A mask is optional within the hospital at this time. -MAY HAVE LIGHT BREAKFAST/LUNCH Take the following medications with a SIP of water the morning of surgery: _REGULAR HOME MEDS DO NOT STOP ANY OF YOUR OTHER PRESCRIPTION MEDICATIONS PRIOR TO SURGERY ?EXCEPT THE FOLLOWING Medications to discontinue per physician Date to take last dose Please no make-up, nail egyptian, hairspray, perfume, deodorant, or body powder the day of surgery. No jewelry (including any body piercings) or valuables the day of surgery, leave them at home. Please take a shower or bath the night before, or the morning of, surgery with an antibacterial soap. Wear comfortable, loose fitting clothing. Children are encouraged to wear pajamas. - Jewelry must be removed prior to entering the operating room. Rings and piercings that are not removed may be cut off. - The hospital will not accept responsibility for valuables. - Please leave all valuables, including medications, at home the day of surgery. -MY DRIVE SELF TO/FROM HOSPITAL For Pediatric surgeries, we recommend two adults accompany the child home. Follow any additional instructions given to you from your surgeon. If you or anyone in your household have experienced Covid symptoms in the past week, please notify your surgeon or the nurse liaison at the phone number below for possible testing. Telephone instructions given to ___PT and asked if any additional questions and then verbalized understanding. Patient advised to call surgeon office or pre surgery nurse liaison [phone] if any additional questions.
--- NOTE | 2023-08-15 13:15 | WPDHPUPDATE1 ---
History and Physical Update Update Date/Time: 08/15/23 13:15 History and Physical has been reviewed, including an updated exam of the patient. There are NO changes in the patient's condition. Risks, benefits, and alternatives have been discussed and questions answered. Patient agrees to proceed with procedure.
[2023-08-15 13:45] VITALS: BP 144/80; PULSE 74; RESP 14; TEMP 36.6; O2SAT 97
[2023-08-15 14:27] VITALS: BP 174/88; PULSE 69; RESP 16; O2SAT 97
[2023-08-15 14:34] VITALS: BP 175/85; PULSE 71; RESP 18; O2SAT 96
[2023-08-15 14:48] VITALS: BP 156/76; PULSE 77; RESP 16; O2SAT 98
[2023-08-15 14:54] VITALS: BP 147/60; PULSE 70; RESP 16; O2SAT 100
--- NOTE | 2023-08-15 14:59 | W.PM.PROC2 ---
Procedure Note - Detailed Date of Procedure 08/15/23 Pre-op Diagnosis Back Mass, 2 cm Post-op Diagnosis Same Procedure Performed Excision of 2 cm back cyst Surgeon Ang Choudhary, DO Anesthesia Local (1% lidocaine with epinephrine) Indications This is a 68-year-old woman who presented with a recurrent back cyst. She states that about 4 or 5 years ago she had a back cyst that was excised in her PCPs office. This was doing well for a couple years but then she began experiencing recurrent swelling and some occasional drainage. She was found to have a recurrent cyst in this region and did recently have to undergo incision and drainage of an infected cyst. Discussions were made with the patient about treatment options and decision was made to proceed with excision of the 2 cm back cyst. Findings Excision of 2 cm back cyst was performed. An elliptical incision was made to encompass the entire cyst. The entire cyst area measured about 2 cm. It was completely excised intact and sent to the lab for pathology. No other underlying abnormalities were noted. Description of Procedure Procedure as well as risks benefits and alternatives were discussed with the patient. Written consent was obtained and placed in chart prior to procedure. Patient was brought back to surgical suite. She was placed prone on the hospital stretcher. Her back area was prepped and draped in sterile fashion using chlorhexidine prep. The area was anesthetized with 1% lidocaine with epinephrine. A 2 cm wide elliptical incision was then made around the cyst using a 15 blade scalpel. The cyst was carefully excised sharply using the 15 blade scalpel. It was completely excised and sent to the lab for pathology. Hemostasis was then achieved with electrocautery. The wound bed was then inspected and no other abnormalities were noted. The skin edges were then reapproximated using 3-0 nylon vertical mattress interrupted sutures. Bacitracin ointment was then applied followed by 4 x 4 gauze and tape. Estimated Blood Loss 5 Pathology Yes (2 cm back cyst) Complications No immediate complications Condition Stable Disposition Same day [facility] Billing Surgery - Charge Forward: Surgery Billing
== END 2023-08-15 15:10 | disposition home or self-care (01) ==
PROVIDERS: PCP Internal Medicine; Visit Provider Surgery
PROC: (CPT 11402; principal; 2023-08-15 14:00)
DX: L72.0 Epidermal cyst (principal)
CPT/HCPCS: 11402; 88305; A9270

== ENCOUNTER 2024-07-20 11:54 | Outpatient (CLI) | payer MEDICARE, OTHER, SELFPAY ==
--- NOTE | ~2024-07-20 | MM_ITS ---
EXAMINATION: MM screening venkat BI w hilario HISTORY: Screening mammogram, family history of breast cancer in her mother. TECHNIQUE: Craniocaudal and mediolateral oblique 3-D tomosynthesis images were obtained and synthetic 2-D images were generated. CAD analysis was submitted and interpreted. COMPARISON: 05/22/2023, 05/20/2022, 03/01/2021 BREAST PARENCHYMAL COMPOSITION:Not Dense. There are scattered areas of fibroglandular density. FINDINGS: No suspicious mass, calcification, or architectural distortion are identified in either larissa ast to suggest malignancy. There has been no suspicious interval change. IMPRESSION: No mammographic evidence of malignancy. Recommend routine screening mammography in one year. BI-RADS Category 1: Negative Reviewed, dictated and finalized at location . [facility]
== END 2024-07-20 11:55 | disposition home or self-care (01) ==
PROVIDERS: PCP Internal Medicine; Visit Provider Internal Medicine
DX: Z12.31 Encounter for screening mammogram for malignant neoplasm of breast (principal)
CPT/HCPCS: 77063; 77067